=== PATIENT | male | born 1930 | race Caucasian/White ===

== ENCOUNTER 2017-12-02 08:49 | Outpatient (CLI) | payer MEDICARE ==
--- NOTE | 2017-12-02 11:54 | CT ---
CT OF THE ABDOMEN AND PELVIS WITH AND WITHOUT CONTRAST: Date: 12/02/17 INDICATION: 87-year-old male with history of gross hematuria. History of colonoscopy last week and history of sma ll bladder tumor. Patient has history of melanoma and Type 2 diabetes. Patient has surgical history o f skin graft placement, cholecystectomy, and appendectomy. CONTRAST: 75 mL [id number]. FINDINGS: There are small calcifications within the pleural spaces bilaterally within the lower hemithoraces wh ich may reflect sequelae of prior infection or trauma. There is bibasilar atelectasis. There is prominent fatty infiltration of the liver. The gallbladder is surgically absent. There is a 1.7 cm left adrenal adenoma. Right adrenal gland is normal appearing. The pancreas and spl een appear within normal limits. There is a 1.3 cm hypodense lesion in the right mid kidney that demonstrates enhancement on the postc ontrast series suspicious for small renal malignancy. Left kidney is normal appearing. No gross filling defect is seen on the delayed phase images. There is some mild asymetric wall thicke elidia involving the bladder, which is nonspecific due to underdistention of the bladder. No definite i ntraluminal focal filling defect is evident. There are scattered phleboliths seen involving the pelvis. There is a mild amount of retained stool i n the colon with scattered diverticula. Small bowel is of normal caliber. There is scattered degenerative osteoarthritic change. IMPRESSION: 1. 1.3 cm hypodense enhancing lesion involving the anterior right mid kidney is suspicious for small renal cell carcinoma. 2. No definite intraluminal filling defect is seen on the delayed phase images. There is nonspecific mild anterior wall thickening of the bladder; however, some of this could be related to artifact fro m the patient being slightly underdistended. 3. Chronic fatty infiltration of the liver. 4. Colonic diverticulosis. CODE T. POS: [facility]
[2017-12-02] MEDS ORDERED: Iopamidol 370 76% 100 ML VIAL ONE (12:58)
== END 2017-12-02 08:50 | disposition home or self-care (01) ==
LOC: CT 08:49
PROVIDERS: ATTEND Urology
DX: R31.0 Gross hematuria (principal); N28.9 Disorder of kidney and ureter, unspecified; K76.0 Fatty (change of) liver, not elsewhere classified; K57.30 Diverticulosis of large intestine without perforation or abscess without bleeding
CPT/HCPCS: 74178; 82565

== ENCOUNTER 2017-12-04 13:23 | Outpatient (CLI) | payer MEDICARE ==
[2017-12-04 14:31] LABS: Hemoglobin 15.5 g/dL (14.0-18.0); Mean Corpuscular HGB CONC 34.5 g/dL (32.0-36.0); Mean Corpuscular Hemoglobin 30.3 pg (27.0-31.0); Mean Corpuscular Volume 87.9 fl (80.0-94.0); Mean Platelet Volume 6.8 fL (7.4-10.4); Platelet Count 121 thou/uL (130-400); RBC Distribution Width 13.2 % (11.5-14.5); Red Blood Cell (RBC) Count 5.12 mill/uL (4.70-6.10); White Blood Cell (WBC) Count 7.9 thou/uL (4.8-10.8)
[2017-12-04 14:47] LABS: Bilirubin Negative (Negative); Blood, Urine Negative (Negative); Clarity CLEAR (Clear); Glucose, Urine (Dipstick) 100 mg/dL (Negative); Leukocyte Negative (Negative); Nitrite Negative (Negative); Protein, Urine (Dipstick) 100 mg/dL (Neg-Trace); Urobilinogen 0.2 mg/dL (0.2-1.0)
[2017-12-04 14:54] LABS: Bacteria/HPF None Seen HPF (None Seen); Hyaline Casts/LPF 0-3 HYALINE CAST LPF (0-3 Hyaline); Squamous Epithelial 0-3 HPF (0-3); WBC/HPF 0-3 HPF (0-3)
[2017-12-04 15:01] LABS: PTT 27.6 SEC (22.9-36.1); Prothrombin Time 13.3 SEC (12.0-14.7)
[2017-12-04 15:05] LABS: Anion Gap 9 mmol/L (10-20); BUN (Urea Nitrogen) 20 mg/dL (8.4-25.7); Calc. Creatinine Clearance 0 mL/min (70-130); Calcium 9.3 mg/dL (7.8-10.44); Carbon Dioxide 28 mmol/L (23-31); Chloride 102 mmol/L (98-107); Estimated GFR-MDRD 60; Glucose 125 mg/dL (83-110); Potassium 3.4 mmol/L (3.5-5.1); Sodium 136 mmol/L (136-145)
--- NOTE | 2017-12-04 20:29 | EKG ---
Test Reason : Blood Pressure : / mmHG Vent. Rate : 067 BPM Atrial Rate : 067 BPM P-R Int : 154 ms QRS Dur : 148 ms QT Int : 452 ms P-R-T Axes : 051 -37 025 degrees QTc Int : 477 ms Sinus rhythm with marked sinus arrhythmia Left axis deviation Right bundle branch block Abnormal ECG No previous ECGs available Confirmed by ROBERTA LIM (2) on 12/04/2017 8:28:36 PM Referred By: KASHMIR Confirmed By:ROBERTA LIM
== END 2017-12-04 13:24 | disposition home or self-care (01) ==
LOC: LABBT 13:23
PROVIDERS: ATTEND Urology
DX: Z01.818 Encounter for other preprocedural examination (principal); N32.9 Bladder disorder, unspecified; I45.10 Unspecified right bundle-branch block
CPT/HCPCS: 80048; 81001; 85027; 85610; 85730; 86850; 86900; 86901; 87086; 93005; 93010

== ENCOUNTER 2017-12-10 11:44 | Day surgery (SDC) | payer MEDICARE, OTHER ==
[2017-12-04 13:41] VITALS: BMI 26.6
[~2017-12-10 11:44] MED LIST: Lidocaine 1% PF 5 ML VIAL ONE; PROPOFOL 200 MG/20 ML VIAL ONE; Succinylcholine Chloride 20 MG/ML 10 ml SYRINGE FS ONE
[2017-12-10] MEDS ORDERED: Levofloxacin 500 mg/D5W 100 ml Premix Bag ONE (13:08)
[2017-12-10] MEDS ORDERED: ADMIXTURE FEE IV SCH (13:15)
[2017-12-10] MEDS ORDERED: MITOMYCIN IV SCH (13:15)
[2017-12-10] MEDS ORDERED: WATER FOR INJECTION STERILE IV SCH (13:15)
[2017-12-10] MEDS ORDERED: Fentanyl 100 MCG/2 ML VIAL ONE (15:45)
[2017-12-10] MEDS ORDERED: B & O ONE (16:45)
[2017-12-10] MEDS ORDERED: Ondansetron HCl/PF 4 MG/2 ML Vial IVP PRN (17:09)
[2017-12-10] MEDS ORDERED: Promethazine HCl 25 MG/ML VIAL IM PRN (17:09)
[2017-12-10] MEDS ORDERED: Promethazine HCl 25 MG/ML VIAL SLOW IVP PRN (17:09)
[2017-12-10] MEDS ORDERED: Oxybutynin 5 MG TAB ONE (17:19)
--- NOTE | 2017-12-10 19:39 | OP ---
DATE OF PROCEDURE: 12/10/2017 SERVICE: Urology. SURGEON: Severiano Au M.D. PREOPERATIVE DIAGNOSIS: Bladder cancer. POSTOPERATIVE DIAGNOSIS: Bladder cancer. PROCEDURE PERFORMED: Transurethral resection of bladder tumor with instillation of postoperative donnell omycin C. INDICATIONS FOR PROCEDURE: Mr. Whyte is an 87-year-old white male, who [place] to [place] with hematu loren. On cystoscopy, he was found to have a bladder tumor. I recommended resection of the bladder tu mor with instillation of postoperative mitomycin C with all risks and benefits of surgery discussed a nd he has agreed to proceed forward. DESCRIPTION OF PROCEDURE: After identification of armband and verification of consent, the patient w as brought back to the operating room where he underwent general anesthesia with an LMA. He was then placed in dorsal lithotomy position and prepped and draped in usual sterile fashion. After appropri ate timeout, a lubricated 26-[place]icar[place] resectoscope sheath with visual obturator was introduced per uret hra into the bladder. The prostate was wide open as previously dictated in the cystoscopy notes. Hi s bladder demonstrated the same tumor on the right posterior wall where had previously been seen. No other tumors were noted. There were some fine papillary lesions surrounding the tumor indicating so me potential extension, which I elected to fulgurate. The visual obturator was then switched out for the bipolar thin bladder loop resectoscope. Paralytics were administered to the patient and the res ection was then performed into the detrusor muscle, taking care not to perforate the bladder. Resect ion was carried out all the way through until the entire tumor was removed. The area of fine papilla ry type lesions on the periphery of the tumor were cauterized and fulgurated. It appear to be tumor extending into a bladder diverticulum, which went nearby. This was extensively fulgurated until the entire diverticulum appeared to be obliterated from cautery. Upon completion, the area had good hemo stasis and all the tumor had appeared been resected. The bladder tumor chips were evacuated through the resectoscope and sent off for routine pathologic evaluation. The bladder was emptied and then re filled partially to look at the bladder tumor site, which appeared to have no evidence of significant bleeding. The resectoscope was then removed and a 16-[place] Hyatt catheter was placed in the patien t's bladder with 10 mL of sterile water placed into the balloon. A 40 mg of mitomycin C and water wa s then instilled into the bladder and a catheter plug attached. The patient was then awakened and ta rupal to PACU for recovery in stable condition. COMPLICATIONS: None. ESTIMATED BLOOD LOSS: Minimal. RETAINED TUBES AND DRAINS: A 16-[place] Hyatt catheter. SPECIMENS: Bladder tumor. DISPOSITION: The patient was to keep the mitomycin in his bladder for an hour and then he will have this evacuated and the catheter removed. He will then be discharged and can follow up with me on an outpatient basis.
== END 2017-12-10 19:10 | disposition home or self-care (01) ==
LOC: SDC 11:44
PROVIDERS: ATTEND Urology
PROC: 0TBB8ZX Excision of Bladder, Via Natural or Artificial Opening Endoscopic, Diagnostic (ICD-10-PCS; principal; 2017-12-10)
DX: C67.2 Malignant neoplasm of lateral wall of bladder (principal); E11.9 Type 2 diabetes mellitus without complications; I10 Essential (primary) hypertension; K22.70 Barrett's esophagus without dysplasia; Z87.891 Personal history of nicotine dependence; Z79.899 Other long term (current) drug therapy; Z79.84 Long term (current) use of oral hypoglycemic drugs
CPT/HCPCS: 52234; 88307; J9280; 88305; J1956; J2001; J2704; J3010

== ENCOUNTER 2018-01-16 10:00 | Outpatient (CLI) | payer MEDICARE ==
[2018-01-16 11:57] LABS: Bilirubin Negative (Negative); Blood, Urine Negative (Negative); Clarity CLEAR (Clear); Glucose, Urine (Dipstick) >=1000 mg/dL (Negative); Leukocyte Small (Negative); Nitrite Negative (Negative); Protein, Urine (Dipstick) 30 mg/dL (Neg-Trace); Specific Gravity, Urine 1.021 (1.002-1.036); Urobilinogen 0.2 mg/dL (0.2-1.0); pH, Urine 5.5 (5.0-9.0)
[2018-01-16 11:59] LABS: Bacteria/HPF None Seen HPF (None Seen); Hyaline Casts/LPF 0-3 HYALINE CAST LPF (0-3 Hyaline); Pathc Cast-AUWi Flag 0.29 (0-2.49); Squamous Epithelial 0-3 HPF (0-3); WBC/HPF 21-50 HPF (0-3)
[2018-01-16 12:04] LABS: Hemoglobin 15.1 g/dL (14.0-18.0); Mean Corpuscular Hemoglobin 30.3 pg (27.0-31.0); Mean Corpuscular Volume 89.2 fL (78.0-98.0); Mean Platelet Volume 7.8 fL (7.4-10.4); PTT 29.4 SEC (22.9-36.1); Platelet Count 102 thou/uL (130-400); Prothrombin Time 13.8 SEC (12.0-14.7); RBC Distribution Width 13.4 % (11.5-14.5); Red Blood Cell (RBC) Count 4.97 mill/uL (4.70-6.10); White Blood Cell (WBC) Count 7.2 thou/uL (4.8-10.8)
[2018-01-16 12:44] LABS: Anion Gap 13 mmol/L (10-20); BUN (Urea Nitrogen) 17 mg/dL (8.4-25.7); Calc. Creatinine Clearance 0 mL/min (70-130); Calcium 9.7 mg/dL (7.8-10.44); Carbon Dioxide 26 mmol/L (23-31); Chloride 102 mmol/L (98-107); Estimated GFR-MDRD 60; Glucose 159 mg/dL (83-110); Potassium 3.8 mmol/L (3.5-5.1); Sodium 137 mmol/L (136-145)
== END 2018-01-16 10:01 | disposition home or self-care (01) ==
LOC: LABBT 10:00
PROVIDERS: ATTEND Urology
DX: Z01.818 Encounter for other preprocedural examination (principal); C67.9 Malignant neoplasm of bladder, unspecified
CPT/HCPCS: 80048; 81001; 85027; 85610; 85730; 86850; 86900; 86901; 87086; 93005; 93010

== ENCOUNTER 2018-01-23 05:59 | Day surgery (SDC) | payer MEDICARE ==
[2018-01-16 10:48] VITALS: BMI 25.8
[2018-01-23] MEDS ORDERED: Levofloxacin 500 mg/D5W 100 ml Premix Bag ONE (06:07)
[2018-01-23] MEDS ORDERED: Iothalamate Meglumine 60% 50 ML VIAL FS ONE (06:35)
[2018-01-23] MEDS ORDERED: Midazolam HCl 2 mg/2 ml Vial ONE (06:59)
[2018-01-23] MEDS ORDERED: Fentanyl 100 MCG/2 ML VIAL ONE (06:59)
[2018-01-23] MEDS ORDERED: SUGAMMADEX SODIUM 200 MG/2 ML VIAL ONE (07:30)
[2018-01-23] MEDS ORDERED: Oxybutynin 5 MG TAB ONE (08:48)
[2018-01-23] MEDS ORDERED: Phenazopyridine HCl 97.5 MG TABLET ONE (08:48)
--- NOTE | 2018-01-23 10:03 | RAD ---
CYSTOGRAM: History: Bladder perforation. Comparison: 12-02-17 FINDINGS/IMPRESSION: A single fluoroscopic view was submitted for interpretation. There is contrast within the urinary kaye dder without evidence of leakage of contrast from the urinary bladder. POS: [facility]
--- NOTE | 2018-01-23 10:34 | OP ---
DATE OF PROCEDURE: 01/23/2018 SERVICE: Urology. SURGEON: Severiano Au M.D. PREOPERATIVE DIAGNOSIS: Bladder cancer. POSTOPERATIVE DIAGNOSIS: Bladder cancer. PROCEDURE PERFORMED: Repeat TURBT area of approximately 2-5 cm. INDICATIONS FOR PROCEDURE: Mr. Whyte is an 87-year-old white male who had a bladder tumor which wa s previously resected. 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 The tumor was relatively close and going into a bladder diverticulum. I dis cussed repeat resection with the patient with risks and benefits including bladder perforation and he has agreed to proceed forward with repeat resection. DESCRIPTION OF PROCEDURE: After identification of armband and verification of consent, the patient w as brought to the operating room, given general anesthesia with endotracheal intubation and paralytic s. He was then placed in dorsal lithotomy position and prepped and draped in usual sterile fashion. After appropriate timeout, a lubricated 26 [place] resectoscope sheath with visual obturator was pass ed with ease through the urethra into the bladder. Attention was turned to the prior resection site which had some fibrinous exudate. This was scraped off using the camera head. The visual obturator was then switched out for the resectoscope loop which was a thin bladder loop. Some remaining fibrin ous tissue was scraped off with the bladder loop. Then, using the cutting current and bipolar cauter y, deeper resections were taken into the prior bladder tumor resection site until muscle fibers could be identified. The diverticulum also had what looked like possible visible tumor in it. This area was not resected the previous time which was fulgurated. Again, due to the thinness of the bladder d iverticulum, I did not want to risk a resection. Therefore, on cutting current and just touching the loop on the tissues, a very gentle vaporization was performed of the tumor itself, I did resect into the diverticulum, but extremely superficially to avoid a bladder perforation. All the visible tumor was obliterated using this technique and there was no identifiable tumor. We did not get deeper res ections into the prior bladder tumor base with muscle fibers present to ensure that there was no leak since I was resected within diverticulum. I elected to perform a cystogram at the end of the proced ure. The bladder tumor resection chips were evacuated and the resectoscope removed. A 16 [place] Fol ey catheter was placed atraumatically into the bladder with 10 mL of sterile water in the balloon. A 60 mL of Cysto-Conray were instilled into the bladder followed by an additional [address] for a total of 300 mL instilled. The bladder did appear adequately distended and there was no ev idence of extravasation or leak. Satisfied that there was no perforation, the bladder was drained an d the catheter was removed. The patient was then awakened and taken to PACU for recovery in stable c ondition. COMPLICATIONS: None. ESTIMATED BLOOD LOSS: Minimal. RETAINED TUBES AND DRAINS: None. SPECIMENS: Bladder tumor prior resection site. DISPOSITION: The patient will be discharged home and follow up with me in approximately 1-2 weeks fo r a postop check.
[2018-01-23] MEDS ORDERED: PROPOFOL 200 MG/20 ML VIAL ONE (12:26)
[2018-01-23] MEDS ORDERED: Lidocaine 1% PF 5 ML VIAL ONE (12:26)
== END 2018-01-23 11:00 | disposition home or self-care (01) ==
LOC: SDC 05:59
PROVIDERS: ATTEND Urology
PROC: 0TBB8ZZ Excision of Bladder, Via Natural or Artificial Opening Endoscopic (ICD-10-PCS; principal; 2018-01-23)
DX: N30.90 Cystitis, unspecified without hematuria (principal); I10 Essential (primary) hypertension; E11.9 Type 2 diabetes mellitus without complications; K22.70 Barrett's esophagus without dysplasia; Z98.890 Other specified postprocedural states; Z79.899 Other long term (current) drug therapy; Z79.84 Long term (current) use of oral hypoglycemic drugs
CPT/HCPCS: 51600; 51798; 74430; 88305; C1758; C1769; J1956; J2001; J2250; J2704; J3010; Q9961

== ENCOUNTER 2018-06-18 09:30 | Outpatient (CLI) | payer MEDICARE ==
--- NOTE | 2018-06-18 12:22 | CT ---
CT ABDOMEN AND PELVIS PERFORMED WITH AND WITHOUT CONTRAST ENHANCEMENT: Date: 06/18/18 HISTORY: Follow-up of bladder cancer. COMPARISON: 12/02/17 study. FINDINGS: The lung bases show some chronic change. There is some pleural based calcification noted. No pulmonar y nodules are identified. Fatty change of the liver appears less pronounced than on the prior examination. Liver is within norm al limits of size and the spleen is normal in size and appearance. Pancreas shows no evidence of mass or ductal dilatation. The gallbladder has been removed. The right adrenal gland is normal. The left adrenal nodule appears to represent an adenoma. It is sta ble in size at 1.7 cm. The right and left kidneys are normal in size. The hypodense lesion involving the anterior cortex of the mid pole of the right kidney is stable in size at approximately 1.3 cm. On precontrast images, it has CT Hounsfield unit numbers of 7. On the more immediate arterial phase exa mination, these increase to 15, and on the delayed images to 17. This is not definitive enhancement o n this examination. There is no significant periaortic or mesenteric adenopathy. CT of pelvis was performed with and without contrast enhancement. There is suggestion of some anterio r bladder wall thickening. Some of this is related to underdistention, but appears to be similar to t he prior examination. Some of this is related to underdistention, but does appear to be slightly asym metric to the left side of the bladder. No significant pelvic lymphadenopathy. No free fluid. IMPRESSION: 1. Stable left adrenal adenoma. 2. Stable hypodense lesion involving the mid pole of the right kidney. On the current examination, i t does not definitively show enhancement. It measures in the 1.2 cm range. 3. Suggestion of some bladder wall thickening, which is slightly more prominent along the anterior b ladder wall. At least a portion of this is related to underdistention. It does appear to be a stable finding as compared to the previous exam. POS: [facility]
[2018-06-18] MEDS ORDERED: Iopamidol 370 76% 100 ML VIAL ONE (16:45)
== END 2018-06-18 09:31 | disposition home or self-care (01) ==
LOC: BICCT 09:30
PROVIDERS: ATTEND Urology
DX: C67.2 Malignant neoplasm of lateral wall of bladder (principal); N28.89 Other specified disorders of kidney and ureter; D35.02 Benign neoplasm of left adrenal gland
CPT/HCPCS: 74178; 82565

== ENCOUNTER 2019-06-22 10:10 | Outpatient (CLI) | payer MEDICARE ==
--- NOTE | 2019-06-22 11:16 | CT ---
CT OF THE ABDOMEN AND PELVIS WITH AND WITHOUT IV CONTRAST INDICATION: History of bladder cancer TECHNIQUE: Noncontrast CT of the abdomen and pelvis was performed. Postcontrast images were obtained in the nephrographic phase and delayed phase. Axial and coronal reformatted images were constructed from the raw data. COMPARISON: CT the abdomen and pelvis with and without contrast dated June 18, 2018 and December 02 018 FINDINGS: ABDOMEN: Lung bases: Stable pleural-based calcifications of the left lower hemithorax. Mild bibasilar subsegme ntal atelectasis. Liver: No focal lesion. Gallbladder: Surgically absent Pancreas: Normal. Adrenal glands: Right adrenal gland is normal-appearing. Left adrenal adenoma is stable. Spleen: Normal. Kidneys and ureters: The mildly enhancing hypodense lesion is slightly larger than on the most recent comparison examination now measuring 1.4 cm were previously measured 1.1 cm. There are mild suspected internally enhancing septations within this lesion. No additional focal renal lesion is anju dent. There is a 1 to 2 mm nonobstructing calculus within the inferior pole of the right kidney. There is a 1 to 2 mm nonobstructing calculus within the inferior pole of the left kidney. No focal fi lling defect is seen within the segmentally opacified ureters. Vasculature: There are severe vascular calcifications seen involving the visualized vasculature. Lymph nodes:No lymphadenopathy. Free fluid in abdomen:No free fluid is evident. PELVIS: Small and large bowel: There is a moderate amount of retained stool within the colon. There are scatt ered colonic diverticulosis. Appendix:Not visualized Bladder: No intraluminal defect is evident. Asymmetric wall thickening involving the anterior bladder is stable. Rectal and perirectal soft tissues:Normal. Reproductive structures: Normal. Free fluid in pelvis: No free fluid is evident. Lymphadenopathy pelvis: No lymphadenopathy is evident. Osseous structures: There has been interval dated development of an age-indeterminate superior endpla te compression fracture of T12. There is diffuse osteopenia. There is scattered degenerative and osteoarthritic changes. Soft tissues:Normal. IMPRESSION: 1. Slight interval enlargement of the Bosniak 2F lesion involving the right mid kidney. 2. Stable asymmetric wall thickening involving the anterior bladder may be related to prior therapy. 3. Interval development of a age indeterminate superior endplate compression fracture of T12. Bone sc an may be helpful to evaluate acuity. 4. Bilateral nephrolithiasis 5. Stable left adrenal adenoma
[2019-06-22] MEDS ORDERED: Iopamidol-370 76% 500 ML 1 ML ONE (15:12)
== END 2019-06-22 10:11 | disposition home or self-care (01) ==
LOC: BICCT 10:10
PROVIDERS: ATTEND Urology
DX: C67.2 Malignant neoplasm of lateral wall of bladder (principal); N20.0 Calculus of kidney; D35.02 Benign neoplasm of left adrenal gland; N32.89 Other specified disorders of bladder; N28.89 Other specified disorders of kidney and ureter
CPT/HCPCS: 74178; 82565; Q9967

== ENCOUNTER 2020-05-19 14:06 | Outpatient (CLI) | payer MEDICARE ==
[2020-05-19] MEDS ORDERED: Iopamidol-370 76% 500 ML 1 ML ONE (14:24)
--- NOTE | 2020-05-20 09:51 | CT ---
CT Abdomen Pelvis W WO con: 05/19/2020 3:06 PM CLINICAL HISTORY: History of bladder cancer. TECHNIQUE: Multiple contiguous axial images were obtained and a CT of the abdomen and pelvis without and with IV contrast. Postcontrast images were obtained in the nephrographic and excretory phases. Sagittal and coronal reformats were performed. COMPARISON: 06/22/2019, 06/18/2018 FINDINGS: Kidneys and Urinary Tract: Right kidney and ureter: 1 to 2 mm calculus in the upper pole that is nonobstructing. No hydronephros is or hydroureter. 1.5 cm right renal cyst. No urothelial lesions: no filling defect, dilation, stricture or wall thickening. Left kidney and ureter: 2 mm calculus in the lower pole that is nonobstructing. No hydronephrosis or hydroureter. No renal mass or other lesions. No urothelial lesions: no filling defect, dilation, stricture or wall thickening. Urinary bladder: Circumferential thickening of the urinary bladder wall is likely secondary to its de compressed state. No calculi, mass or other lesions. Remainder of Abdomen and Pelvis: Liver: Normal. Gallbladder and biliary system: Removed Pancreas: Normal. Adrenal glands: Stable 1.6 cm left adrenal nodule. GI tract: Normal. Abdominal aorta and its major branches: Atherosclerotic calcifications. No aneurysm. Peritoneum/retroperitoneum: Normal. No ascites. No adenopathy. Pelvic structures: Normal. No pelvic lymphadenopathy. Body wall and musculoskeletal: Degenerative changes in the spine. Visualized lower thorax: Normal. No pulmonary parenchymal mass or pleural effusion. IMPRESSION: 1. No suspicious bladder mass identified and no pelvic adenopathy seen. 2. Nonobstructing bilateral renal calculi 3. Right renal cyst 4. Left adrenal adenoma
== END 2020-05-19 14:07 | disposition home or self-care (01) ==
LOC: BICCT 14:06
PROVIDERS: ATTEND Urology
DX: C67.2 Malignant neoplasm of lateral wall of bladder (principal); N20.0 Calculus of kidney; N28.1 Cyst of kidney, acquired; D35.02 Benign neoplasm of left adrenal gland
CPT/HCPCS: 74178; Q9967

== ENCOUNTER 2021-05-05 13:31 | Outpatient (CLI) | payer MEDICARE ==
[~2021-05-05 13:31] MED LIST changes: +Iopamidol 370 76% 100 ML VIAL ONE; -Lidocaine 1% PF 5 ML VIAL ONE; -PROPOFOL 200 MG/20 ML VIAL ONE; -Succinylcholine Chloride 20 MG/ML 10 ml SYRINGE FS ONE
== END 2021-05-05 13:32 | disposition home or self-care (01) ==
LOC: BICCT 13:31
PROVIDERS: ATTEND Urology
DX: C67.2 Malignant neoplasm of lateral wall of bladder (principal); I51.7 Cardiomegaly; J92.9 Pleural plaque without asbestos; D35.02 Benign neoplasm of left adrenal gland; N28.89 Other specified disorders of kidney and ureter; Z90.49 Acquired absence of other specified parts of digestive tract
CPT/HCPCS: 74178; 82565; Q9967